=== PATIENT | male | born 1990 | race Caucasian/White ===

== ENCOUNTER 2020-11-17 12:35 | Emergency (ER) | payer MEDICAID ==
[2020-11-17 12:43] VITALS: BP 126/81; PULSE 82; RESP 16; TEMP 98.8
[2020-11-17] MEDS: PROPARACAINE 0.5% OPHTH DROPS 15 ML BTL BOTH EYES STA (12:49)
[2020-11-17] MEDS: FLUORESCEIN STRIPS 1 MG STRIP BOTH EYES ONE (12:49)
--- NOTE | 2020-11-17 13:08 | ED ---
Eye Problem HPI - General Source: patient Mode of arrival: ambulatory Limitations: no limitations <Ashley White - Last Filed: 11/17/20 13:47> <Thu Solitario - Last Filed: 11/18/20 12:22> - General Chief complaint: Eye Problems Stated complaint: [place] eye Time Seen by Provider: 11/17/20 12:43 - History of Present Illness Initial comments: 30-year-old male presented for bilateral eye pain and left eye redness. 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 He states he woke up with bilateral eye irritation left greater than the right more redness on the left than the right and was concerned he had pinkeye and was told to have be evaluated by his place of work. Patient states he had some crusting this morning. Patient denies any nausea vomiting headaches he denies fevers or upper respiratory symptoms. Patient denies vision loss he missed a eye watering at times. Overall vision intact. Patient denies any use of contact lenses or corrective lenses. He states he does not have off [facility] care currently. Remaining review of systems negative upon arrival (Ashley hWite) - Related Data Previous Rx's Medication Instructions Recorded Acetaminophen-Codeine 300-30mg 1 tab PO Q4H PRN #20 tablet 11/23/15 [Tylenol #3] Ibuprofen [Motrin] 600 mg PO Q8HR PRN #30 tab 11/23/15 Penicillin V Potassium [Pen Vee K] 500 mg PO QID #40 tab 11/23/15 Erythromycin Ophth Oint [Romycin 1 applic BOTH EYES QID 5 Days #1 gm 11/17/20 Ophth Oint] Allergies Allergy/AdvReac Type Severity Reaction Status Date / Time ceftriaxone sodium Allergy Rash/Hives Verified 11/17/20 12:43 [From Rocephin] sulfamethoxazole Allergy Rash/Hives Verified 11/17/20 12:43 [From Bactrim] trimethoprim [From Bactrim] Allergy Rash/Hives Verified 11/17/20 12:43 Review of Systems ROS Other: All systems not noted in ROS Statement are negative. <Ashley White - Last Filed: 11/17/20 13:47> ROS Other: All systems not noted in ROS Statement are negative. <Thu Solitario - Last Filed: 11/18/20 12:22> ROS Statement: Those systems with pertinent positive or pertinent negative responses have been documented in the HPI. Past Medical History Past Medical History: No Reported History History of Any Multi-Drug Resistant Organisms: None Reported Past Surgical History: No Surgical Hx Reported Past Psychological History: No Psychological Hx Reported Smoking Status: Never smoker Past Alcohol Use History: None Reported Past Drug Use History: None Reported <Ashley White - Last Filed: 11/17/20 13:47> General Exam Limitations: no limitations <Ashley White - Last Filed: 11/17/20 13:47> - General Exam Comments Initial Comments: General: The patient is awake and alert, in no distress Eye: +3 mm pupils are equal, round and reactive to light, extra-ocular movements are intact. No nystagmus. There is injected left conjunctiva right conjunctiva is within normal limits.. No signs of icterus. 4 seen examination there is diffuse very faint uptake on the right eye, left eye there is a localized area of uptake at the 10 o'clock position within the metallic appearance. Negative Usama sign b/l. Ears, nose, mouth and throat: There are moist mucous membranes and no oral lesions. Neck: The neck is supple, there is no tenderness or JVD. Cardiovascular: There is a regular rate and rhythm. No murmur, rub or gallop is appreciated. Respiratory: Lungs are clear to auscultation, respirations are non-labored, breath sounds are equal. No wheezes, stridor, rales, or rhonchi. Gastrointestinal: Soft, non-distended, non-tender abdomen without masses or organomegaly noted. There is no rebound or guarding present. Musculoskeletal: Normal ROM, no tenderness. Strength 5/5. Sensation intact. Radial pulses equal bilaterally 2+. Neurological: A&O x 3. CN II-XII intact grossly, There are no obvious motor or sensory deficits. Coordination appears grossly intact. Speech is normal. Skin: Skin is warm and dry and no rashes or lesions are noted. Psychiatric: Cooperative, appropriate mood & affect, normal judgment. (Ashley White) Course Vital Signs 11/17/20 12:37 Temperature 98.8 F Pulse Rate 82 Respiratory 16 Rate Blood Pressure 126/81 O2 Sat by Pulse 98 Oximetry Medical Decision Making <Ashley White - Last Filed: 11/17/20 13:47> <Thu Solitario - Last Filed: 11/18/20 12:22> - Medical Decision Making Findings on exam mixed. 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 obvious foreign body left eye and there is findings of the right eye concerning for ultraviolet keratitis. pt will be treated wtih antibiotics and instructed to f/u with ophthalmology. Patient refuses tetanus despite knowing if he is up-to-date, with metal foreign body in eye. Foreign body was initially removed with a Q-tip after anesthetizing the area with proparacaine. I did attempt to clear rest ring with an Yvonne brush a remove the most superficial layer however there appears to be a deeper rust ring, recommend patient follow-up with ophthalmology for further removal He is aware of risk. Negative siedel sign after removal. pt has no additional complaints. I discussed the case in detail by attending . Altaf was agreeable to care plan and discharge. (Ashley White) I was available for consultation in the emergency department. The history and physical exam were done by the midlevel provider. I was consulted for this patients care. I reviewed the case with the midlevel provider and based on their presentation of the patient, I agree with the assessment, medical decision making and plan of care as documented. Patient informed he must follow up with ophthalmology within 24 hours. Chart was dictated using [employer] dictation software. Attempts were made to correct any dictation errors however some typographical errors may persist. Patient was seen during a national state of emergency due to the Covid-19 pandemic. (Thu Solitario) Disposition Is patient prescribed a controlled substance at d/c from ED?: No Time of Disposition: 13:07 <Ashley White - Last Filed: 11/17/20 13:47> <Thu Solitario - Last Filed: 11/18/20 12:22> Clinical Impression: Ultraviolet keratitis of right eye, Foreign body of left eye Disposition: HOME SELF-CARE Condition: Good Instructions (If sedation given, give patient instructions): Eye Foreign Body (ED) Additional Instructions: Please use medication as discussed. Please follow-up with ophthalmology in the next 1-2 days. Return for any vision changes or worsening pain and redness Please return to emergency room if the symptoms increase or worsen or for any other concerns. Patient may return to work tomorrow if no visual changes/blurred vision. Prescriptions: Erythromycin Ophth Oint [Romycin Ophth Oint] 1 applic BOTH EYES QID 5 Days #1 gm Referrals: None,Stated [Primary Care Provider] - 1-2 days Rj Soriano MD [STAFF PHYSICIAN] - 1-2 days
[2020-11-17] MEDS: ERYTHROMYCIN 5 MG/GM OPHTH OINT 1 GM TUBE BOTH EYES STA (13:11)
[2020-11-17] MEDS: DIPH,PERTUS(ACELL)TETVAC-LF 0.5 ML VIAL IM ONE (13:12)
== END 2020-11-17 13:12 | disposition home or self-care (01) ==
LOC: EC 12:35
DX: T15.92XA Foreign body on external eye, part unspecified, left eye, initial encounter (principal); H16.8 Other keratitis; Z88.1 Allergy status to other antibiotic agents; Z88.2 Allergy status to sulfonamides; X58.XXXA Exposure to other specified factors, initial encounter
CPT/HCPCS: 65205; 99282

== ENCOUNTER 2021-06-09 13:30 | Emergency (ER) | payer BC, OTHER ==
[2021-06-09 14:04] VITALS: BP 108/70; PULSE 85; RESP 18; TEMP 98.3
--- NOTE | 2021-06-09 14:28 | ED ---
ENT HPI - General Chief complaint: Dental/Oral Stated complaint: dental infection Time Seen by Provider: 06/09/21 13:53 Source: patient, RN notes reviewed Mode of arrival: ambulatory Limitations: no limitations - History of Present Illness Initial comments: Patient is a 30-year-old male that presents to the emergency room complaining of a upper left dental pain/infection. He notes that his back left molar tooth 16. He notes that he is to follow up with his dentist after discharge and emergency room. He is only requesting antibiotic therapy at this time. He denied any other issues or complaints. He denied any difficulty swallowing breathing chest pain shortness of breath headache nausea vomiting diarrhea constipation fever fatigue chills. - Related Data Previous Rx's Medication Instructions Recorded Acetaminophen-Codeine 300-30mg 1 tab PO Q4H PRN #20 tablet 11/23/15 [Tylenol #3] Ibuprofen [Motrin] 600 mg PO Q8HR PRN #30 tab 11/23/15 Penicillin V Potassium [Pen Vee K] 500 mg PO QID #40 tab 11/23/15 Erythromycin Ophth Oint [Romycin 1 applic BOTH EYES QID 5 Days #1 gm 11/17/20 Ophth Oint] Penicillin V Potassium [Pen Vee K] 500 mg PO QID #40 tablet 06/09/21 Allergies Allergy/AdvReac Type Severity Reaction Status Date / Time ceftriaxone sodium Allergy Rash/Hives Verified 06/09/21 14:00 [From Rocephin] sulfamethoxazole Allergy Rash/Hives Verified 06/09/21 14:00 [From Bactrim] trimethoprim [From Bactrim] Allergy Rash/Hives Verified 06/09/21 14:00 Review of Systems ROS Statement: Those systems with pertinent positive or pertinent negative responses have been documented in the HPI. ROS Other: All systems not noted in ROS Statement are negative. Past Medical History Past Medical History: No Reported History History of Any Multi-Drug Resistant Organisms: None Reported Past Surgical History: No Surgical Hx Reported Past Psychological History: No Psychological Hx Reported Smoking Status: Never smoker Past Alcohol Use History: None Reported Past Drug Use History: None Reported General Exam Limitations: no limitations General appearance: alert, in no apparent distress Head exam: Present: atraumatic, normocephalic, normal inspection Eye exam: Present: normal appearance, PERRL, EOMI. Absent: scleral icterus, conjunctival injection, periorbital swelling Expanded Teeth exam: Present: dental caries (Too numerous to count), fractured tooth # (Several fractured teeth on upper or lower jaw.), other (Exposed nerve tooth 16 upper left.). Absent: normal inspection Neck exam: Present: normal inspection Respiratory exam: Present: normal lung sounds bilaterally. Absent: respiratory distress, wheezes, rales, rhonchi, stridor Cardiovascular Exam: Present: regular rate, normal rhythm, normal heart sounds. Absent: systolic murmur, diastolic murmur, rubs, gallop, clicks Extremities exam: Present: normal inspection, full ROM, normal capillary refill. Absent: tenderness, pedal edema, joint swelling, calf tenderness Neurological exam: Present: alert, oriented X3 Psychiatric exam: Present: normal affect, normal mood Skin exam: Present: warm, dry, intact, normal color. Absent: rash Course Vital Signs 06/09/21 14:00 Temperature 98.3 F Pulse Rate 85 Respiratory 18 Rate Blood Pressure 108/70 O2 Sat by Pulse 97 Oximetry Medical Decision Making - Medical Decision Making 30-year-old male complaining of exposed nerve upper left tooth. Patient requesting antibiotics only states he will follow-up with dentist after discharge in ER. Case discussed with Dr. Marrero, patient discharge home Disposition Clinical Impression: Dental infection Disposition: HOME SELF-CARE Condition: Stable Instructions (If sedation given, give patient instructions): Toothache (ED) Additional Instructions: Please return to the Emergency Department if symptoms worsen or any other concerns. Follow-up primary care in next 1-2 days. Follow-up with dentist as soon as possible. Take antibiotics as prescribed. Prescriptions: Penicillin V Potassium [Pen Vee K] 500 mg PO QID #40 tablet Is patient prescribed a controlled substance at d/c from ED?: No Referrals: None,Stated [Primary Care Provider] - 1-2 days Time of Disposition: 14:28
== END 2021-06-09 14:48 | disposition home or self-care (01) ==
LOC: EC 13:30
DX: K04.7 Periapical abscess without sinus (principal); S02.5XXA Fracture of tooth (traumatic), initial encounter for closed fracture; Z88.1 Allergy status to other antibiotic agents; Z88.2 Allergy status to sulfonamides; X58.XXXA Exposure to other specified factors, initial encounter
CPT/HCPCS: 99282